=== PATIENT | male | born 1980 | race Caucasian/White ===

== ENCOUNTER 2018-01-27 19:47 | Emergency (ER) | payer OTHER ==
[~2018-01-27] VITALS: Ht 182.8 cm; Wt 129.3 kg
[~2018-01-27 19:47] MED LIST: ATIVAN1 MG PO; CIPROFLOXACIN500 MG PO; CLONAZEPAM2 M1 PO; KEFLEX500 MG PO; MOTRIN800 MG PO; PHENERGAN25 M1 PO; PREDNICOT20 MG PO; PREDNISONE50 MG PO; SERTRALINE PO; VICODIN ES 7501 TAB PO; ZITHROMAX Z PA250 MG PO; ZOLOFT100 MG PO
[2018-01-27 21:34] LABS: BASO % 0.6 % (0.0-1.0); EOS # 0.3 10*3/uL (0.0-0.4); EOS % 3.5 % (1.0-4.0); HEMOGLOBIN 14.6 g/dl (14.0-18.0); LYMPH # 2.4 10*3/uL (1.3-4.4); LYMPH % 33.9 % (27.0-41.0); MEAN CELL VOLUME 86.3 fl (80.0-94.0); MEAN CORPUSCULAR HGB 28.6 pg (27.0-31.0); MEAN CORPUSCULAR HGB CONC 33.2 g/dl (33.0-37.0); MEAN PLATELET VOLUME 10.4 fl (9.6-12.3); MONO # 0.5 10*3/uL (0.1-1.0); MONO % 7.2 % (3.0-9.0); NEUT # 3.9 10*3/uL (2.3-7.9); NEUT % 54.8 % (47.0-73.0); PLATELET COUNT AUTOMATED 280 10*3/uL (130-400); RED CELL DISTRI WIDTH 12.8 % (0-14.5); WHITE BLOOD COUNT 7.1 10*3/uL (4.8-10.8)
[2018-01-27 21:49] LABS: ALBUMIN 3.5 gm/dl (3.1-4.5); ALKALINE PHOSPHATASE 42 U/L (45-117); BUN 11 mg/dl (7-24); CHLORIDE 105 mmol/L (98-107); CREATININE 0.88 mg/dL (0.70-1.30); POTASSIUM 3.8 mmol/L (3.5-5.1); SGOT/AST 15 IU/L (3-35); SGPT/ALT 19 U/L (12-78); SODIUM 142 mmol/L (136-145); TOTAL PROTEIN 7.2 gm/dL (6.4-8.2)
[2018-01-27] MEDS ORDERED: MOTION SICKNESS25 M2 PO (23:36)
== END 2018-01-27 23:42 | disposition home or self-care (01) ==
LOC: ED 19:47
PROVIDERS: Nurse Practitioner
DX: G43.909 Migraine, unspecified, not intractable, without status migrainosus (principal); R42 Dizziness and giddiness; H65.92 Unspecified nonsuppurative otitis media, left ear; Z98.890 Other specified postprocedural states; Z91.040 Latex allergy status; Z79.899 Other long term (current) drug therapy

== ENCOUNTER 2018-06-17 01:06 | Emergency (ER) | payer OTHER ==
[~2018-06-17] VITALS: Ht 187.9 cm; Wt 136.1 kg
[~2018-06-17 01:06] MED LIST changes: +MOTION SICKNESS25 M2 PO
[2018-06-17 01:32] LABS: BASO # 0.1 10*3/uL (0.0-0.1); BASO % 0.4 % (0.0-1.0); EOS # 0.1 10*3/uL (0.0-0.4); EOS % 0.9 % (1.0-4.0); HEMATOCRIT 49.6 % (42.0-52.0); HEMOGLOBIN 16.4 g/dl (14.0-18.0); LYMPH # 1.4 10*3/uL (1.3-4.4); LYMPH % 10.4 % (27.0-41.0); MEAN CELL VOLUME 86.6 fl (80.0-94.0); MEAN CORPUSCULAR HGB 28.6 pg (27.0-31.0); MEAN CORPUSCULAR HGB CONC 33.1 g/dl (33.0-37.0); MEAN PLATELET VOLUME 10.3 fl (9.6-12.3); MONO # 0.9 10*3/uL (0.1-1.0); NEUT # 10.6 10*3/uL (2.3-7.9); NEUT % 81.1 % (47.0-73.0); PLATELET COUNT AUTOMATED 311 10*3/uL (130-400); RED BLOOD COUNT 5.73 10*6/uL (4.50-5.90); RED CELL DISTRI WIDTH 13.1 % (0-14.5); WHITE BLOOD COUNT 13.1 10*3/uL (4.8-10.8)
[2018-06-17 01:47] LABS: ALBUMIN 3.9 gm/dl (3.1-4.5); ALKALINE PHOSPHATASE 49 U/L (45-117); BUN 21 mg/dl (7-24); CHLORIDE 106 mmol/L (98-107); CREATININE 1.08 mg/dL (0.70-1.30); LIPASE 174 U/L (73-393); POTASSIUM 3.8 mmol/L (3.5-5.1); SGOT/AST 26 IU/L (3-35); SGPT/ALT 30 U/L (12-78); SODIUM 146 mmol/L (136-145); TOTAL PROTEIN 7.8 gm/dL (6.4-8.2)
== END 2018-06-17 03:09 | disposition home or self-care (01) ==
LOC: ED 01:06
PROVIDERS: Emergency Medicine
DX: K52.9 Noninfective gastroenteritis and colitis, unspecified (principal); G43.909 Migraine, unspecified, not intractable, without status migrainosus; Z91.040 Latex allergy status

== ENCOUNTER → 2018-12-06 | Outpatient (CLI) | payer OTHER ==
[~2018-12-06] MED LIST changes: +MEDROL DOSEPAK4 MG PO; +Motrin,Rufen800 MG PO; +NAPROSYN500 MG PO; +Orphenadrine C100 MG PO; +ROBAXIN500 M1 PO
[2018-12-06 14:17] LABS: BILIRUBIN NEGATIVE (NEGATIVE); BLOOD 1+ (NEGATIVE); CLARITY CLEAR (CLEAR); COLOR YELLOW (YELLOW); GLUCOSE NEGATIVE (NEGATIVE); KETONE NEGATIVE (NEGATIVE); LEUKO ESTERASE NEGATIVE (NEGATIVE); NITRITE NEGATIVE (NEGATIVE); UROBILINOGEN 0.2 E.U./dl (0.2-1.0)
[2018-12-06 14:27] LABS: BACTERIA 1+; FINE GRANULAR CAST 0-2; MUCOUS 3+
== END | disposition home or self-care (01) ==
LOC: LAB 13:43
PROVIDERS: Nurse Practitioner Family
DX: R82.90 Unspecified abnormal findings in urine (principal)

== ENCOUNTER 2019-02-19 13:47 | Emergency (ER) | payer OTHER ==
[~2019-02-19] VITALS: Ht 185.4 cm; Wt 131.5 kg
[~2019-02-19 13:47] MED LIST changes: -MEDROL DOSEPAK4 MG PO; -NAPROSYN500 MG PO; -ROBAXIN500 M1 PO
[2019-02-19] MEDS ORDERED: MEDROL DOSEPAK4 MG PO (14:21)
[2019-02-19] MEDS ORDERED: NAPROSYN500 MG PO (14:21)
[2019-02-19] MEDS ORDERED: ROBAXIN500 M1 PO (14:21)
== END 2019-02-19 14:51 | disposition home or self-care (01) ==
LOC: ED 13:47
DX: M54.42 Lumbago with sciatica, left side (principal); Z91.040 Latex allergy status; Z79.899 Other long term (current) drug therapy

== ENCOUNTER 2019-08-11 21:04 | Emergency (ER) | payer OTHER ==
[~2019-08-11] VITALS: Ht 187.9 cm; Wt 136.1 kg
[~2019-08-11 21:04] MED LIST changes: +MEDROL DOSEPAK4 MG PO; +NAPROSYN500 MG PO; +ROBAXIN500 M1 PO
[2019-08-11] MEDS ORDERED: DIFLUCAN150 MG PO (21:42)
[2019-08-11] MEDS ORDERED: IBUPROFEN600 MG PO (21:42)
== END 2019-08-11 22:20 | disposition home or self-care (01) ==
LOC: ED 21:04
DX: B37.0 Candidal stomatitis (principal); E66.9 Obesity, unspecified; Z91.040 Latex allergy status; Z79.899 Other long term (current) drug therapy

== ENCOUNTER → 2019-08-14 | Outpatient (CLI) | payer OTHER ==
[~2019-08-14] MED LIST changes: +DIFLUCAN150 MG PO; +IBUPROFEN600 MG PO
== END | disposition home or self-care (01) ==
LOC: CARD 13:35
DX: I10 Essential (primary) hypertension (principal)

== ENCOUNTER 2019-09-28 21:15 | Emergency (ER) | payer OTHER ==
[~2019-09-28] VITALS: Ht 185.4 cm; Wt 136.1 kg
[2019-09-28] MEDS ORDERED: CYCLOBENZAPRINE5 M3 PO (23:17)
== END 2019-09-28 23:57 | disposition home or self-care (01) ==
LOC: ED 21:15
DX: S16.1XXA Strain of muscle, fascia and tendon at neck level, initial encounter (principal); R42 Dizziness and giddiness; G43.909 Migraine, unspecified, not intractable, without status migrainosus; E66.9 Obesity, unspecified; Z79.899 Other long term (current) drug therapy; Z91.040 Latex allergy status; V89.2XXA Person injured in unspecified motor-vehicle accident, traffic, initial encounter; Y93.I9 Activity, other involving external motion; Y92.488 Other paved roadways as the place of occurrence of the external cause; Y99.8 Other external cause status

== ENCOUNTER 2019-10-22 19:39 | Emergency (ER) | payer OTHER ==
[~2019-10-22 19:39] MED LIST changes: +CYCLOBENZAPRINE5 M3 PO
== END 2019-10-22 21:20 | disposition home or self-care (01) ==
LOC: ED 19:39
DX: S40.252A Superficial foreign body of left shoulder, initial encounter (principal); S40.262A Insect bite (nonvenomous) of left shoulder, initial encounter; I10 Essential (primary) hypertension; F41.9 Anxiety disorder, unspecified; F32.9 Major depressive disorder, single episode, unspecified; Z91.040 Latex allergy status; Z79.899 Other long term (current) drug therapy; W57.XXXA Bitten or stung by nonvenomous insect and other nonvenomous arthropods, initial encounter; Y93.89 Activity, other specified; Y92.89 Other specified places as the place of occurrence of the external cause; Y99.8 Other external cause status

== ENCOUNTER 2019-12-13 11:21 | Emergency (ER) | payer OTHER ==
[2019-12-13 11:45] LABS: BASO % 0.8 % (0.0-1.0); EOS # 0.1 10*3/uL (0.0-0.4); EOS % 1.8 % (1.0-4.0); HEMATOCRIT 45.1 % (42.0-52.0); LYMPH # 1.2 10*3/uL (1.3-4.4); LYMPH % 22.7 % (27.0-41.0); MEAN CELL VOLUME 86.4 fl (80.0-94.0); MEAN CORPUSCULAR HGB 28.2 pg (27.0-31.0); MEAN CORPUSCULAR HGB CONC 32.6 g/dl (33.0-37.0); MEAN PLATELET VOLUME 10.2 fl (9.6-12.3); MONO # 0.4 10*3/uL (0.1-1.0); MONO % 7.9 % (3.0-9.0); NEUT # 3.4 10*3/uL (2.3-7.9); NEUT % 66.6 % (47.0-73.0); PLATELET COUNT AUTOMATED 285 10*3/uL (130-400); RED BLOOD COUNT 5.22 10*6/uL (4.50-5.90); RED CELL DISTRI WIDTH 12.8 % (0-14.5); WHITE BLOOD COUNT 5.1 10*3/uL (4.8-10.8)
[2019-12-13 11:56] LABS: ACT PARTIAL THROMBO TIME 30.1 SECONDS (20.0-32.1)
[2019-12-13 12:01] LABS: ALBUMIN 3.5 gm/dl (3.1-4.5); ALKALINE PHOSPHATASE 41 U/L (45-117); BUN 17 mg/dl (7-24); CHLORIDE 107 mmol/L (98-107); CREATININE 0.86 mg/dL (0.70-1.30); SGOT/AST 20 IU/L (3-35); SGPT/ALT 27 U/L (12-78); SODIUM 139 mmol/L (136-145); TOTAL PROTEIN 7.3 gm/dL (6.4-8.2)
[2019-12-13 12:05] LABS: TROPONIN I < 0.015 ng/ml (<0.045)
== END 2019-12-13 15:37 | disposition home or self-care (01) ==
LOC: ED 11:21
PROVIDERS: Emergency Medicine
DX: R07.89 Other chest pain (principal); E66.9 Obesity, unspecified; Z91.040 Latex allergy status

== ENCOUNTER 2019-12-14 14:31 | Emergency (ER) | payer OTHER ==
[~2019-12-14] VITALS: Ht 185.4 cm; Wt 145.6 kg
[2019-12-14 14:49] LABS: BASO % 0.6 % (0.0-1.0); EOS # 0.1 10*3/uL (0.0-0.4); EOS % 1.5 % (1.0-4.0); HEMATOCRIT 42.9 % (42.0-52.0); LYMPH % 19.5 % (27.0-41.0); MEAN CELL VOLUME 86.7 fl (80.0-94.0); MEAN CORPUSCULAR HGB 28.5 pg (27.0-31.0); MEAN CORPUSCULAR HGB CONC 32.9 g/dl (33.0-37.0); MONO # 0.3 10*3/uL (0.1-1.0); NEUT # 3.9 10*3/uL (2.3-7.9); PLATELET COUNT AUTOMATED 293 10*3/uL (130-400); RED BLOOD COUNT 4.95 10*6/uL (4.50-5.90); RED CELL DISTRI WIDTH 12.6 % (0-14.5); WHITE BLOOD COUNT 5.3 10*3/uL (4.8-10.8)
[2019-12-14 15:01] LABS: ACT PARTIAL THROMBO TIME 30.4 SECONDS (20.0-32.1)
[2019-12-14 15:05] LABS: ALBUMIN 3.3 gm/dl (3.1-4.5); ALKALINE PHOSPHATASE 35 U/L (45-117); BUN 14 mg/dl (7-24); CHLORIDE 108 mmol/L (98-107); CREATININE 0.82 mg/dL (0.70-1.30); POTASSIUM 4.1 mmol/L (3.5-5.1); SGOT/AST 18 IU/L (3-35); SGPT/ALT 26 U/L (12-78); SODIUM 141 mmol/L (136-145)
[2019-12-14 15:08] LABS: TROPONIN I < 0.015 ng/ml (<0.045)
== END 2019-12-14 17:28 | disposition home or self-care (01) ==
LOC: ED 14:31
PROVIDERS: Emergency Medicine
DX: R07.9 Chest pain, unspecified (principal); F41.9 Anxiety disorder, unspecified; F32.9 Major depressive disorder, single episode, unspecified; Z91.040 Latex allergy status

== ENCOUNTER 2020-04-13 19:46 | Emergency (ER) | payer OTHER ==
[2020-04-13] MEDS ORDERED: ATENOLOL50 M1 PO (20:40)
[2020-04-13] MEDS ORDERED: LISINOPRIL10 M1 PO (20:40)
[2020-04-13] MEDS ORDERED: DOXYCYCLINE MO100 M1 PO (20:40)
[2020-04-13] MEDS ORDERED: BUSPAR5 MG PO (20:40)
== END 2020-04-13 21:35 | disposition home or self-care (01) ==
LOC: ED 19:46
DX: S61.012A Laceration without foreign body of left thumb without damage to nail, initial encounter (principal); Z91.040 Latex allergy status; Z79.899 Other long term (current) drug therapy; W45.8XXA Other foreign body or object entering through skin, initial encounter; Y93.89 Activity, other specified; Y92.89 Other specified places as the place of occurrence of the external cause; Y99.8 Other external cause status

== ENCOUNTER 2020-04-21 00:29 | Emergency (ER) | payer OTHER ==
[~2020-04-21] VITALS: Ht 185.4 cm; Wt 145.1 kg
[~2020-04-21 00:29] MED LIST changes: +ATENOLOL50 M1 PO; +BUSPAR5 MG PO; +DOXYCYCLINE MO100 M1 PO; +LISINOPRIL10 M1 PO
[2020-04-21] MEDS ORDERED: CEPHALEXIN500 M1 PO ×2 (01:07)
== END 2020-04-21 01:46 | disposition home or self-care (01) ==
LOC: ED 00:29
DX: L08.9 Local infection of the skin and subcutaneous tissue, unspecified (principal); M79.622 Pain in left upper arm; G43.909 Migraine, unspecified, not intractable, without status migrainosus; Z91.040 Latex allergy status; Z79.899 Other long term (current) drug therapy

== ENCOUNTER 2020-05-08 05:51 | Emergency (ER) | payer OTHER ==
[~2020-05-08] VITALS: Ht 185.4 cm; Wt 136.1 kg
[~2020-05-08 05:51] MED LIST changes: +CEPHALEXIN500 M1 PO
== END 2020-05-08 07:12 | disposition home or self-care (01) ==
LOC: ED 05:51
DX: R21 Rash and other nonspecific skin eruption (principal); Z91.040 Latex allergy status; Z79.899 Other long term (current) drug therapy

== ENCOUNTER 2020-08-28 13:22 | Emergency (ER) | payer OTHER ==
[2020-08-28 13:53] LABS: BASO % 0.4 % (0.0-1.0); EOS # 0.1 10*3/uL (0.0-0.4); EOS % 2.4 % (1.0-4.0); LYMPH # 1.3 10*3/uL (1.3-4.4); MEAN CORPUSCULAR HGB 27.7 pg (27.0-31.0); MEAN CORPUSCULAR HGB CONC 32.9 g/dl (33.0-37.0); MEAN PLATELET VOLUME 10.3 fl (9.6-12.3); MONO # 0.4 10*3/uL (0.1-1.0); MONO % 7.4 % (3.0-9.0); NEUT # 3.7 10*3/uL (2.3-7.9); NEUT % 66.6 % (47.0-73.0); PLATELET COUNT AUTOMATED 312 10*3/uL (130-400); RED BLOOD COUNT 4.88 10*6/uL (4.50-5.90); RED CELL DISTRI WIDTH 13.3 % (0-14.5); WHITE BLOOD COUNT 5.5 10*3/uL (4.8-10.8)
[2020-08-28 14:09] LABS: ALBUMIN 3.4 gm/dl (3.1-4.5); ALKALINE PHOSPHATASE 41 U/L (45-117); BUN 19 mg/dl (7-24); CHLORIDE 108 mmol/L (98-107); CREATININE 0.79 mg/dL (0.70-1.30); POTASSIUM 3.8 mmol/L (3.5-5.1); SGOT/AST 22 IU/L (3-35); SGPT/ALT 28 U/L (12-78); SODIUM 141 mmol/L (136-145); TOTAL PROTEIN 7.4 gm/dL (6.4-8.2)
[2020-08-28 14:19] LABS: ETHYL ALCOHOL < 3.0 mg/dl (<3)
[2020-08-28 14:29] LABS: BILIRUBIN Negative (Negative); BLOOD Negative (Negative); CLARITY Clear (Clear); COLOR Yellow (Yellow); GLUCOSE Negative (Negative); KETONE Negative (Negative); LEUKO ESTERASE Negative (Negative); NITRITE Negative (Negative); UROBILINOGEN 0.2 E.U./dl (0.0-1.0)
[2020-08-28 14:35] LABS: BACTERIA TRACE; MUCOUS TRACE; RBC 0-2 rbc/hpf (0-2)
[2020-08-28 14:38] LABS: URINE AMPHETAMINES < 1000 (1000ng/ml); URINE BARBITURATES < 200 (200ng/ml); URINE BENZODIAZEPINES < 200 (200ng/ml); URINE CANNABINOIDS (THC) < 50 (50ng/ml); URINE COCAINE < 300 (300ng/ml); URINE METHADONE < 300 (300ng/ml); URINE OPIATES < 300 (300ng/ml)
[2020-08-28 14:40] LABS: URINE PHENCYCLIDINE < 25 (25ng/ml)
[2020-08-28] MEDS ORDERED: VISTARIL50 MG PO (15:52)
== END 2020-08-28 15:59 | disposition home or self-care (01) ==
LOC: ED 13:22
PROVIDERS: Emergency Medicine
DX: F41.9 Anxiety disorder, unspecified (principal); Z56.3 Stressful work schedule; I10 Essential (primary) hypertension; F32.9 Major depressive disorder, single episode, unspecified; G43.909 Migraine, unspecified, not intractable, without status migrainosus; Z91.040 Latex allergy status; Z79.899 Other long term (current) drug therapy

== ENCOUNTER 2020-12-13 22:45 | Emergency (ER) | payer OTHER ==
[~2020-12-13] VITALS: Ht 187.9 cm
[~2020-12-13 22:45] MED LIST changes: +VISTARIL50 MG PO
[2020-12-14] MEDS ORDERED: AUGMENTIN 875875 MG PO (01:50)
[2020-12-14] MEDS ORDERED: CLARITIN10 MG PO (01:50)
== END 2020-12-14 02:01 | disposition home or self-care (01) ==
LOC: ED 22:45
DX: J32.9 Chronic sinusitis, unspecified (principal); J40 Bronchitis, not specified as acute or chronic; F41.9 Anxiety disorder, unspecified; Z98.890 Other specified postprocedural states; Z91.040 Latex allergy status; Z79.899 Other long term (current) drug therapy

== ENCOUNTER 2021-09-19 15:28 | Emergency (ER) | payer OTHER ==
[~2021-09-19 15:28] MED LIST changes: +AUGMENTIN 875875 MG PO; +CLARITIN10 MG PO
== END 2021-09-19 16:00 | disposition home or self-care (01) ==
LOC: ED 15:28
DX: S61.211A Laceration without foreign body of left index finger without damage to nail, initial encounter (principal); Z90.89 Acquired absence of other organs; G43.909 Migraine, unspecified, not intractable, without status migrainosus; Z79.899 Other long term (current) drug therapy; Z91.040 Latex allergy status; W26.0XXA Contact with knife, initial encounter; Y93.89 Activity, other specified; Y92.89 Other specified places as the place of occurrence of the external cause; Y99.8 Other external cause status

== ENCOUNTER 2021-11-09 00:25 | Emergency (ER) | payer OTHER ==
[2021-11-09] MEDS ORDERED: NAPROSYN500 MG PO (01:11)
== END 2021-11-09 01:34 | disposition home or self-care (01) ==
LOC: ED 00:25
DX: M25.552 Pain in left hip (principal); Z79.899 Other long term (current) drug therapy; Z91.040 Latex allergy status; Z90.89 Acquired absence of other organs

== ENCOUNTER 2021-11-17 13:43 | Emergency (ER) | payer OTHER ==
[2021-11-17 20:47] LABS: BASO % 0.4 % (0.0-1.0); EOS # 0.1 10*3/uL (0.0-0.4); EOS % 0.7 % (1.0-4.0); HEMATOCRIT 46.4 % (42.0-52.0); LYMPH # 2.1 10*3/uL (1.3-4.4); LYMPH % 20.2 % (27.0-41.0); MEAN CELL VOLUME 86.2 fl (80.0-94.0); MEAN CORPUSCULAR HGB 28.4 pg (27.0-31.0); MEAN PLATELET VOLUME 10.3 fl (9.6-12.3); MONO # 0.8 10*3/uL (0.1-1.0); MONO % 7.8 % (3.0-9.0); NEUT # 7.5 10*3/uL (2.3-7.9); NEUT % 70.5 % (47.0-73.0); PLATELET COUNT AUTOMATED 325 10*3/uL (130-400); RED BLOOD COUNT 5.38 10*6/uL (4.50-5.90); RED CELL DISTRI WIDTH 13.8 % (0-14.5); WHITE BLOOD COUNT 10.6 10*3/uL (4.8-10.8)
[2021-11-17 21:04] LABS: ALKALINE PHOSPHATASE 52 U/L (45-117); BUN 17 mg/dl (7-24); CHLORIDE 106 mmol/L (98-107); POTASSIUM 3.8 mmol/L (3.5-5.1); SGOT/AST 11 IU/L (3-35); SGPT/ALT 26 U/L (12-78); SODIUM 138 mmol/L (136-145); TOTAL PROTEIN 7.6 gm/dL (6.4-8.2)
[2021-11-17] MEDS ORDERED: CYCLOBENZAPRINE5 M3 PO (22:27)
== END 2021-11-17 22:54 | disposition home or self-care (01) ==
LOC: ED 13:43
PROVIDERS: Nurse Practitioner
DX: E86.0 Dehydration (principal); E83.41 Hypermagnesemia; M62.838 Other muscle spasm; Z79.899 Other long term (current) drug therapy; Z91.040 Latex allergy status

== ENCOUNTER 2021-11-23 00:52 | Emergency (ER) | payer OTHER ==
[2021-11-23 01:42] LABS: BASO % 0.4 % (0.0-1.0); EOS # 0.1 10*3/uL (0.0-0.4); EOS % 1.3 % (1.0-4.0); HEMATOCRIT 45.5 % (42.0-52.0); LYMPH % 22.4 % (27.0-41.0); MEAN CELL VOLUME 85.7 fl (80.0-94.0); MEAN CORPUSCULAR HGB 27.5 pg (27.0-31.0); MEAN CORPUSCULAR HGB CONC 32.1 g/dl (33.0-37.0); MONO # 0.6 10*3/uL (0.1-1.0); NEUT # 6.3 10*3/uL (2.3-7.9); NEUT % 69.6 % (47.0-73.0); PLATELET COUNT AUTOMATED 332 10*3/uL (130-400); RED BLOOD COUNT 5.31 10*6/uL (4.50-5.90); RED CELL DISTRI WIDTH 13.6 % (0-14.5); WHITE BLOOD COUNT 9.1 10*3/uL (4.8-10.8)
[2021-11-23 01:59] LABS: ALKALINE PHOSPHATASE 48 U/L (45-117); BUN 20 mg/dl (7-24); CHLORIDE 103 mmol/L (98-107); CPK 285 U/L (39-308); POTASSIUM 3.8 mmol/L (3.5-5.1); SGOT/AST 21 IU/L (3-35); SGPT/ALT 24 U/L (12-78); SODIUM 139 mmol/L (136-145); TOTAL PROTEIN 7.2 gm/dL (6.4-8.2)
== END 2021-11-23 02:38 | disposition home or self-care (01) ==
LOC: ED 00:52
PROVIDERS: Internal Medicine
DX: R53.1 Weakness (principal)

== ENCOUNTER 2021-12-01 09:47 | Observation (INO) | payer OTHER ==
[~2021-12-01] VITALS: Ht 182.8 cm; Wt 156.3 kg
[2021-12-01 09:57] VITALS: BP 153/89
[2021-12-01 10:42] LABS: BASO % 0.3 % (0.0-1.0); EOS # 0.1 10*3/uL (0.0-0.4); EOS % 2.2 % (1.0-4.0); HEMATOCRIT 43.9 % (42.0-52.0); LYMPH # 1.3 10*3/uL (1.3-4.4); LYMPH % 22.7 % (27.0-41.0); MEAN CELL VOLUME 85.2 fl (80.0-94.0); MEAN CORPUSCULAR HGB 27.8 pg (27.0-31.0); MEAN CORPUSCULAR HGB CONC 32.6 g/dl (33.0-37.0); MEAN PLATELET VOLUME 9.9 fl (9.6-12.3); MONO # 0.5 10*3/uL (0.1-1.0); NEUT # 3.9 10*3/uL (2.3-7.9); NEUT % 66.6 % (47.0-73.0); PLATELET COUNT AUTOMATED 306 10*3/uL (130-400); RED BLOOD COUNT 5.15 10*6/uL (4.50-5.90); RED CELL DISTRI WIDTH 13.5 % (0-14.5); WHITE BLOOD COUNT 5.9 10*3/uL (4.8-10.8)
[2021-12-01 10:52] LABS: ACT PARTIAL THROMBO TIME 31.8 SECONDS (20.0-32.1)
[2021-12-01 11:06] LABS: ALKALINE PHOSPHATASE 46 U/L (45-117); BUN 20 mg/dl (7-24); CHLORIDE 108 mmol/L (98-107); CREATININE 0.73 mg/dL (0.70-1.30); LIPASE 170 U/L (73-393); POTASSIUM 3.8 mmol/L (3.5-5.1); SGOT/AST 11 IU/L (3-35); SGPT/ALT 21 U/L (12-78); SODIUM 139 mmol/L (136-145); TOTAL PROTEIN 7.1 gm/dL (6.4-8.2)
[2021-12-01 11:38] LABS: BILIRUBIN Negative (Negative); BLOOD Trace-Lysed (Negative); CLARITY Clear (Clear); COLOR Yellow (Yellow); GLUCOSE Negative (Negative); KETONE Negative (Negative); LEUKO ESTERASE Negative (Negative); NITRITE Negative (Negative); PH 7.5 (4.5-8.0); UROBILINOGEN 0.2 E.U./dl (0.0-1.0)
[2021-12-01 11:46] LABS: URINE AMPHETAMINES < 1000 (1000ng/ml); URINE BARBITURATES < 200 (200ng/ml); URINE BENZODIAZEPINES < 200 (200ng/ml); URINE CANNABINOIDS (THC) < 50 (50ng/ml); URINE COCAINE < 300 (300ng/ml); URINE METHADONE < 300 (300ng/ml); URINE OPIATES < 300 (300ng/ml)
[2021-12-01 11:48] LABS: URINE PHENCYCLIDINE < 25 (25ng/ml)
[2021-12-01 11:59] LABS: BACTERIA 1+
[2021-12-01 12:15] VITALS: BP 148/88
[2021-12-01 14:21] VITALS: BP 148/90
[2021-12-01 15:35] VITALS: BP 127/76
[2021-12-01 20:00] VITALS: BP 114/65
[2021-12-02] VITALS: BP 129/71
[2021-12-02 06:03] LABS: ALKALINE PHOSPHATASE 48 U/L (45-117); BUN 18 mg/dl (7-24); CHLORIDE 109 mmol/L (98-107); CHOLESTEROL 146 mg/dL (<200); CREATININE 0.89 mg/dL (0.70-1.30); LDL CHOLESTEROL 85 mg/dL (9-159); POTASSIUM 3.7 mmol/L (3.5-5.1); SGOT/AST 15 IU/L (3-35); SGPT/ALT 21 U/L (12-78); SODIUM 140 mmol/L (136-145); TOTAL PROTEIN 7.2 gm/dL (6.4-8.2); TRIGLYCERIDES 76 mg/dl (<150)
[2021-12-02 06:24] LABS: ACT PARTIAL THROMBO TIME 32.6 SECONDS (20.0-32.1)
[2021-12-02 06:29] LABS: BASO % 0.4 % (0.0-1.0); EOS # 0.2 10*3/uL (0.0-0.4); EOS % 2.5 % (1.0-4.0); HEMATOCRIT 46.1 % (42.0-52.0); LYMPH % 24.6 % (27.0-41.0); MEAN CELL VOLUME 87.5 fl (80.0-94.0); MEAN CORPUSCULAR HGB 28.1 pg (27.0-31.0); MEAN CORPUSCULAR HGB CONC 32.1 g/dl (33.0-37.0); MEAN PLATELET VOLUME 10.7 fl (9.6-12.3); MONO # 0.6 10*3/uL (0.1-1.0); MONO % 7.4 % (3.0-9.0); NEUT # 5.2 10*3/uL (2.3-7.9); NEUT % 64.7 % (47.0-73.0); PLATELET COUNT AUTOMATED 278 10*3/uL (130-400); RED BLOOD COUNT 5.27 10*6/uL (4.50-5.90); RED CELL DISTRI WIDTH 13.7 % (0-14.5)
[2021-12-02 08:00] VITALS: BP 133/70
[2021-12-02 08:12] LABS: VITAMIN D, 25-HYDROXY 28.2 ng/mL (30-100)
[2021-12-02] MEDS ORDERED: HYDR25T PO (10:41)
[2021-12-02] MEDS ORDERED: MECLIZINE HCL25 M2 PO (10:41)
== END 2021-12-02 11:15 | disposition home or self-care (01) ==
LOC: ED 09:47 → 4E 13:41 → EDHOLD 13:41 → 4E 14:35
PROVIDERS: Emergency Medicine; Family Medicine; ADMIT Internal Medicine; ATTEND Internal Medicine
DX: R42 Dizziness and giddiness (principal); G43.909 Migraine, unspecified, not intractable, without status migrainosus; R82.71 Bacteriuria; E87.8 Other disorders of electrolyte and fluid balance, not elsewhere classified; E83.41 Hypermagnesemia; R79.82 Elevated C-reactive protein (CRP); I10 Essential (primary) hypertension; E66.9 Obesity, unspecified; Z91.040 Latex allergy status; Z90.89 Acquired absence of other organs; Z79.899 Other long term (current) drug therapy

== ENCOUNTER → 2022-01-16 | Outpatient (CLI) | payer OTHER ==
[~2022-01-16] MED LIST changes: +HYDR25T PO; +MECLIZINE HCL25 M2 PO
[2022-01-16 10:01] LABS: BUN 23 mg/dl (7-24); CHLORIDE 109 mmol/L (98-107); POTASSIUM 3.9 mmol/L (3.5-5.1); SGOT/AST 19 IU/L (3-35); SODIUM 139 mmol/L (136-145)
[2022-01-16 10:05] LABS: ALKALINE PHOSPHATASE 51 U/L (45-117); CREATININE 0.74 mg/dL (0.70-1.30); SGPT/ALT 26 U/L (12-78); TOTAL PROTEIN 7.1 gm/dL (6.4-8.2)
== END | disposition home or self-care (01) ==
LOC: LAB 09:22
PROVIDERS: ATTEND Psychiatry & Neurology Neurology
DX: M62.838 Other muscle spasm (principal); R79.0 Abnormal level of blood mineral; R29.2 Abnormal reflex

== ENCOUNTER 2022-03-01 19:50 | Emergency (ER) | payer OTHER ==
[~2022-03-01] VITALS: Ht 177.8 cm; Wt 136.1 kg
[2022-03-01 22:17] LABS: BASO # 0.1 10*3/uL (0.0-0.1); BASO % 0.4 % (0.0-1.0); EOS # 0.1 10*3/uL (0.0-0.4); HEMATOCRIT 46.2 % (42.0-52.0); LYMPH # 2.1 10*3/uL (1.3-4.4); LYMPH % 19.1 % (27.0-41.0); MEAN CELL VOLUME 86.5 fl (80.0-94.0); MEAN CORPUSCULAR HGB 27.9 pg (27.0-31.0); MEAN CORPUSCULAR HGB CONC 32.3 g/dl (33.0-37.0); MEAN PLATELET VOLUME 9.9 fl (9.6-12.3); MONO # 0.9 10*3/uL (0.1-1.0); MONO % 8.2 % (3.0-9.0); NEUT # 7.9 10*3/uL (2.3-7.9); NEUT % 71.1 % (47.0-73.0); PLATELET COUNT AUTOMATED 334 10*3/uL (130-400); RED BLOOD COUNT 5.34 10*6/uL (4.50-5.90); RED CELL DISTRI WIDTH 13.2 % (0-14.5); WHITE BLOOD COUNT 11.1 10*3/uL (4.8-10.8)
[2022-03-01 22:32] LABS: ALKALINE PHOSPHATASE 51 U/L (45-117); BUN 20 mg/dl (7-24); CHLORIDE 104 mmol/L (98-107); CREATININE 0.76 mg/dL (0.70-1.30); LIPASE 170 U/L (73-393); POTASSIUM 3.4 mmol/L (3.5-5.1); SGOT/AST 15 IU/L (3-35); SGPT/ALT 28 U/L (12-78); SODIUM 138 mmol/L (136-145); TOTAL PROTEIN 7.4 gm/dL (6.4-8.2)
== END 2022-03-02 02:40 | disposition home or self-care (01) ==
LOC: ED 19:50
PROVIDERS: Physician Assistant
DX: R11.2 Nausea with vomiting, unspecified (principal); Z20.822 Contact with and (suspected) exposure to COVID-19; R19.7 Diarrhea, unspecified; Z91.040 Latex allergy status; Z79.899 Other long term (current) drug therapy; Z90.89 Acquired absence of other organs

== ENCOUNTER 2022-03-03 01:07 | Emergency (ER) | payer OTHER ==
[~2022-03-03] VITALS: Ht 185.4 cm; Wt 145.1 kg
== END 2022-03-03 04:30 | disposition home or self-care (01) ==
LOC: ED 01:07
DX: S20.212A Contusion of left front wall of thorax, initial encounter (principal); E66.9 Obesity, unspecified; I10 Essential (primary) hypertension; Z91.040 Latex allergy status; Z79.899 Other long term (current) drug therapy; Z90.89 Acquired absence of other organs; W18.39XA Other fall on same level, initial encounter; Y93.89 Activity, other specified; Y92.89 Other specified places as the place of occurrence of the external cause; Y99.8 Other external cause status

== ENCOUNTER 2022-03-25 00:19 | Emergency (ER) | payer OTHER ==
[~2022-03-25] VITALS: Ht 185.4 cm; Wt 145.1 kg
[2022-03-25 00:47] LABS: BASO # 0.1 10*3/uL (0.0-0.1); BASO % 0.6 % (0.0-1.0); EOS # 0.1 10*3/uL (0.0-0.4); EOS % 1.3 % (1.0-4.0); HEMATOCRIT 42.4 % (42.0-52.0); LYMPH # 2.4 10*3/uL (1.3-4.4); LYMPH % 25.7 % (27.0-41.0); MEAN CORPUSCULAR HGB 28.2 pg (27.0-31.0); MEAN CORPUSCULAR HGB CONC 32.1 g/dl (33.0-37.0); MONO # 0.8 10*3/uL (0.1-1.0); MONO % 8.2 % (3.0-9.0); NEUT % 63.9 % (47.0-73.0); PLATELET COUNT AUTOMATED 366 10*3/uL (130-400); RED BLOOD COUNT 4.82 10*6/uL (4.50-5.90); RED CELL DISTRI WIDTH 13.4 % (0-14.5); WHITE BLOOD COUNT 9.4 10*3/uL (4.8-10.8)
[2022-03-25 01:01] LABS: ALKALINE PHOSPHATASE 49 U/L (45-117); BUN 20 mg/dl (7-24); CHLORIDE 110 mmol/L (98-107); CREATININE 0.87 mg/dL (0.70-1.30); POTASSIUM 3.9 mmol/L (3.5-5.1); SGOT/AST 21 IU/L (3-35); SGPT/ALT 33 U/L (12-78); SODIUM 142 mmol/L (136-145); TOTAL PROTEIN 6.7 gm/dL (6.4-8.2)
== END 2022-03-25 01:36 | disposition home or self-care (01) ==
LOC: ED 00:19
PROVIDERS: Internal Medicine
DX: M79.662 Pain in left lower leg (principal); M79.661 Pain in right lower leg; E44.0 Moderate protein-calorie malnutrition; Z91.040 Latex allergy status; Z90.89 Acquired absence of other organs

== ENCOUNTER 2022-10-04 17:56 | Emergency (ER) | payer OTHER ==
[~2022-10-04] VITALS: Ht 185.4 cm; Wt 163.3 kg
[2022-10-04 18:19] LABS: BASO # 0.1 10*3/uL (0.0-0.1); BASO % 0.7 % (0.0-1.0); EOS # 0.1 10*3/uL (0.0-0.4); EOS % 1.8 % (1.0-4.0); HEMATOCRIT 44.7 % (42.0-52.0); LYMPH # 1.8 10*3/uL (1.3-4.4); LYMPH % 25.4 % (27.0-41.0); MEAN CELL VOLUME 85.5 fl (80.0-94.0); MEAN CORPUSCULAR HGB 28.1 pg (27.0-31.0); MEAN CORPUSCULAR HGB CONC 32.9 g/dl (33.0-37.0); MEAN PLATELET VOLUME 10.2 fl (9.6-12.3); MONO # 0.5 10*3/uL (0.1-1.0); MONO % 6.6 % (3.0-9.0); NEUT # 4.7 10*3/uL (2.3-7.9); NEUT % 65.2 % (47.0-73.0); PLATELET COUNT AUTOMATED 348 10*3/uL (130-400); RED BLOOD COUNT 5.23 10*6/uL (4.50-5.90); RED CELL DISTRI WIDTH 13.5 % (0-14.5); WHITE BLOOD COUNT 7.2 10*3/uL (4.8-10.8)
[2022-10-04 18:30] LABS: ACT PARTIAL THROMBO TIME 32.3 SECONDS (20.0-32.1); INTERNATIONAL NORM RATIO 1.1 (2.0-3.5)
[2022-10-04 18:35] LABS: ALKALINE PHOSPHATASE 48 U/L (46-116); BUN 16 mg/dl (9-23); CHLORIDE 106 mmol/L (98-107); POTASSIUM 4.1 mmol/L (3.4-5.1); SGPT/ALT 25 U/L (10-49); TOTAL PROTEIN 7.3 gm/dL (6.0-8.0)
[2022-10-04] MEDS ORDERED: NAPROSYN500 MG PO (20:25)
== END 2022-10-04 20:31 | disposition home or self-care (01) ==
LOC: ED 17:56
PROVIDERS: Family Medicine
DX: S39.012A Strain of muscle, fascia and tendon of lower back, initial encounter (principal); R07.89 Other chest pain; F32.A Depression, unspecified; F41.9 Anxiety disorder, unspecified; Z91.040 Latex allergy status; Z90.89 Acquired absence of other organs; X50.1XXA Overexertion from prolonged static or awkward postures, initial encounter; Y93.89 Activity, other specified; Y92.89 Other specified places as the place of occurrence of the external cause; Y99.8 Other external cause status

== ENCOUNTER 2022-10-09 00:26 | Emergency (ER) | payer OTHER ==
[~2022-10-09] VITALS: Ht 185.4 cm; Wt 167.4 kg
[2022-10-09] MEDS ORDERED: LISINOPRIL10 M1 PO (00:39)
[2022-10-09] MEDS ORDERED: PENICILLIN VK500 MG PO (01:07)
== END 2022-10-09 01:16 | disposition home or self-care (01) ==
LOC: ED 00:26
DX: K02.9 Dental caries, unspecified (principal); K08.89 Other specified disorders of teeth and supporting structures; F32.A Depression, unspecified; F41.9 Anxiety disorder, unspecified; Z91.040 Latex allergy status; Z98.890 Other specified postprocedural states; Z90.89 Acquired absence of other organs

== ENCOUNTER 2022-11-09 22:22 | Emergency (ER) | payer OTHER ==
[~2022-11-09] VITALS: Ht 185.4 cm; Wt 163.3 kg
[~2022-11-09 22:22] MED LIST changes: +PENICILLIN VK500 MG PO
[2022-11-09] MEDS ORDERED: ZESTRIL10 MG PO (22:58)
[2022-11-09] MEDS ORDERED: VIBRA-TAB100 MG PO (23:27)
== END 2022-11-09 23:51 | disposition home or self-care (01) ==
LOC: ED 22:22
DX: J32.9 Chronic sinusitis, unspecified (principal); I10 Essential (primary) hypertension; E66.9 Obesity, unspecified; G43.909 Migraine, unspecified, not intractable, without status migrainosus; Z91.040 Latex allergy status; Z90.89 Acquired absence of other organs

== ENCOUNTER 2022-12-17 21:22 | Emergency (ER) | payer OTHER ==
[~2022-12-17] VITALS: Ht 185.4 cm; Wt 163.3 kg
[~2022-12-17 21:22] MED LIST changes: +VIBRA-TAB100 MG PO; +ZESTRIL10 MG PO
[2022-12-17] MEDS ORDERED: PROVENTIL HFA6.7 GM INH (22:32)
[2022-12-17] MEDS ORDERED: MEDROL DOSEPAK4 MG PO (22:32)
[2022-12-17] MEDS ORDERED: ZITHROMAX250 MG PO (22:32)
== END 2022-12-17 22:40 | disposition home or self-care (01) ==
LOC: ED 21:22
DX: J32.0 Chronic maxillary sinusitis (principal); I10 Essential (primary) hypertension; Z91.040 Latex allergy status; Z79.2 Long term (current) use of antibiotics; Z79.899 Other long term (current) drug therapy; Z90.89 Acquired absence of other organs

== ENCOUNTER 2022-12-31 09:13 | Emergency (ER) | payer OTHER ==
[~2022-12-31] VITALS: Ht 185.4 cm; Wt 163.3 kg
[~2022-12-31 09:13] MED LIST changes: +PROVENTIL HFA6.7 GM INH; +ZITHROMAX250 MG PO
[2022-12-31] MEDS ORDERED: Motrin,Rufen800 MG PO (09:46)
[2022-12-31] MEDS ORDERED: CYCLOBENZAPRINE10 MG PO (09:46)
== END 2022-12-31 09:55 | disposition home or self-care (01) ==
LOC: ED 09:13
DX: S39.012A Strain of muscle, fascia and tendon of lower back, initial encounter (principal); Z91.040 Latex allergy status; Z79.2 Long term (current) use of antibiotics; Z79.899 Other long term (current) drug therapy; Z98.890 Other specified postprocedural states; Z90.89 Acquired absence of other organs; X58.XXXA Exposure to other specified factors, initial encounter; Y93.89 Activity, other specified; Y92.89 Other specified places as the place of occurrence of the external cause; Y99.8 Other external cause status

== ENCOUNTER 2022-12-31 16:16 | Emergency (ER) | payer OTHER ==
[~2022-12-31] VITALS: Wt 163.3 kg
[~2022-12-31 16:16] MED LIST changes: +CYCLOBENZAPRINE10 MG PO
== END 2022-12-31 18:37 | disposition left against medical advice (07) ==
LOC: ED 16:16
DX: R52 Pain, unspecified (principal); Z53.21 Procedure and treatment not carried out due to patient leaving prior to being seen by health care provider

== ENCOUNTER 2022-12-31 19:58 | Emergency (ER) | payer OTHER | END 2022-12-31 20:36 | disposition home or self-care (01) | LOC: ED 19:58 | DX: M54.32 Sciatica, left side (principal); Z91.040 Latex allergy status; Z79.899 Other long term (current) drug therapy; Z79.2 Long term (current) use of antibiotics; Z98.890 Other specified postprocedural states; Z90.89 Acquired absence of other organs ==

== ENCOUNTER 2023-01-02 15:43 | Emergency (ER) | payer OTHER ==
[~2023-01-02] VITALS: Ht 185.4 cm; Wt 163.3 kg
[2023-01-02 17:22] LABS: BASO % 0.2 % (0.0-1.0); EOS % 0.3 % (1.0-4.0); HEMATOCRIT 46.3 % (42.0-52.0); LYMPH # 1.6 10*3/uL (1.3-4.4); LYMPH % 15.9 % (27.0-41.0); MEAN CORPUSCULAR HGB 28.2 pg (27.0-31.0); MEAN CORPUSCULAR HGB CONC 32.4 g/dl (33.0-37.0); MEAN PLATELET VOLUME 10.1 fl (9.6-12.3); MONO # 0.7 10*3/uL (0.1-1.0); MONO % 6.5 % (3.0-9.0); NEUT # 7.9 10*3/uL (2.3-7.9); NEUT % 76.8 % (47.0-73.0); PLATELET COUNT AUTOMATED 329 10*3/uL (130-400); RED BLOOD COUNT 5.32 10*6/uL (4.50-5.90); RED CELL DISTRI WIDTH 13.7 % (0-14.5); WHITE BLOOD COUNT 10.3 10*3/uL (4.8-10.8)
[2023-01-02 17:33] LABS: ACT PARTIAL THROMBO TIME 30.7 SECONDS (20.0-32.1); INTERNATIONAL NORM RATIO 1.1 (2.0-3.5)
[2023-01-02 17:44] LABS: ALKALINE PHOSPHATASE 44 U/L (46-116); BUN 20 mg/dl (9-23); CHLORIDE 105 mmol/L (98-107); LIPASE 36 U/L (12-53); POTASSIUM 3.9 mmol/L (3.4-5.1); SGPT/ALT 29 U/L (10-49); TOTAL PROTEIN 6.9 gm/dL (6.0-8.0)
== END 2023-01-02 22:26 | disposition home or self-care (01) ==
LOC: ED 15:43
PROVIDERS: Internal Medicine
DX: M54.32 Sciatica, left side (principal); F32.A Depression, unspecified; F41.9 Anxiety disorder, unspecified; Z91.040 Latex allergy status; Z90.89 Acquired absence of other organs

== ENCOUNTER → 2023-03-29 | Outpatient (CLI) | payer OTHER ==
[2023-03-29 09:07] LABS: BASO % 0.6 % (0.0-1.0); EOS # 0.2 10*3/uL (0.0-0.4); EOS % 2.1 % (1.0-4.0); HEMATOCRIT 45.3 % (42.0-52.0); LYMPH # 1.9 10*3/uL (1.3-4.4); LYMPH % 26.4 % (27.0-41.0); MEAN CELL VOLUME 87.6 fl (80.0-94.0); MEAN PLATELET VOLUME 10.5 fl (9.6-12.3); MONO # 0.5 10*3/uL (0.1-1.0); MONO % 7.2 % (3.0-9.0); NEUT # 4.6 10*3/uL (2.3-7.9); NEUT % 63.6 % (47.0-73.0); PLATELET COUNT AUTOMATED 362 10*3/uL (130-400); RED BLOOD COUNT 5.17 10*6/uL (4.50-5.90); RED CELL DISTRI WIDTH 13.7 % (0-14.5); WHITE BLOOD COUNT 7.2 10*3/uL (4.8-10.8)
[2023-03-29 09:38] LABS: ALKALINE PHOSPHATASE 49 U/L (46-116); BUN 13 mg/dl (9-23); CHLORIDE 106 mmol/L (98-107); CHOLESTEROL 152 mg/dL (<200); LDL CHOLESTEROL 93 mg/dL (9-159); POTASSIUM 4.1 mmol/L (3.4-5.1); SGPT/ALT 21 U/L (10-49); TOTAL PROTEIN 7.1 gm/dL (6.0-8.0); TRIGLYCERIDES 87 mg/dl (<150)
== END | disposition home or self-care (01) ==
LOC: LAB 08:07
PROVIDERS: ATTEND Nurse Practitioner Primary Care
DX: I10 Essential (primary) hypertension (principal); E55.9 Vitamin D deficiency, unspecified; R53.83 Other fatigue

== ENCOUNTER → 2023-07-25 | Outpatient (CLI) | payer OTHER ==
[2023-07-25 12:00] LABS: BASO # 0.1 10*3/uL (0.0-0.1); BASO % 0.8 % (0.0-1.0); EOS # 0.2 10*3/uL (0.0-0.4); EOS % 2.5 % (1.0-4.0); HEMATOCRIT 46.1 % (42.0-52.0); LYMPH % 30.8 % (27.0-41.0); MEAN CELL VOLUME 86.3 fl (80.0-94.0); MEAN CORPUSCULAR HGB CONC 31.2 g/dl (33.0-37.0); MEAN PLATELET VOLUME 10.1 fl (9.6-12.3); MONO # 0.5 10*3/uL (0.1-1.0); MONO % 7.2 % (3.0-9.0); NEUT # 3.7 10*3/uL (2.3-7.9); NEUT % 57.5 % (47.0-73.0); PLATELET COUNT AUTOMATED 348 10*3/uL (130-400); RED BLOOD COUNT 5.34 10*6/uL (4.50-5.90); RED CELL DISTRI WIDTH 13.4 % (0-14.5); WHITE BLOOD COUNT 6.4 10*3/uL (4.8-10.8)
[2023-07-25 12:37] LABS: ALKALINE PHOSPHATASE 49 U/L (46-116); BUN 14 mg/dl (9-23); CHLORIDE 105 mmol/L (98-107); CHOLESTEROL 149 mg/dL (<200); LDL CHOLESTEROL 93 mg/dL (9-159); POTASSIUM 4.3 mmol/L (3.4-5.1); SGPT/ALT 20 U/L (5-49); TOTAL PROTEIN 7.3 gm/dL (6.0-8.0); TRIGLYCERIDES 77 mg/dl (<150)
== END | disposition home or self-care (01) ==
LOC: LAB 11:36
PROVIDERS: ATTEND Nurse Practitioner Primary Care
DX: I10 Essential (primary) hypertension (principal); R73.9 Hyperglycemia, unspecified

== ENCOUNTER 2023-07-30 14:41 | Emergency (ER) | payer OTHER ==
[~2023-07-30] VITALS: Ht 185.4 cm; Wt 154.2 kg
[2023-07-30] MEDS ORDERED: Ketorolac Tromethamine 30 MG/ML VIAL IM ONE (15:05)
[2023-07-30] MEDS ORDERED: methylPREDNISolone sod succ 125 MG VIAL IM ONE (15:05)
== END 2023-07-30 16:37 | disposition home or self-care (01) ==
LOC: ED 14:41
DX: M70.71 Other bursitis of hip, right hip (principal); Z91.040 Latex allergy status; Z79.899 Other long term (current) drug therapy; Z79.2 Long term (current) use of antibiotics; Z98.890 Other specified postprocedural states; Z90.89 Acquired absence of other organs; Y93.89 Activity, other specified

== ENCOUNTER 2024-01-11 09:27 | Emergency (ER) | payer OTHER ==
[~2024-01-11] VITALS: Ht 185.4 cm; Wt 156.5 kg
[2024-01-11] MEDS ORDERED: AMOX-CLAV 875-1 EACH PO (10:55)
== END 2024-01-11 10:53 | disposition home or self-care (01) ==
LOC: ED 09:27
DX: H66.91 Otitis media, unspecified, right ear (principal); Z91.040 Latex allergy status; Z79.899 Other long term (current) drug therapy; Z90.89 Acquired absence of other organs; Z98.890 Other specified postprocedural states

== ENCOUNTER 2024-06-14 19:41 | Emergency (ER) | payer OTHER ==
[~2024-06-14] VITALS: Ht 185.4 cm; Wt 163.3 kg
[~2024-06-14 19:41] MED LIST changes: +AMOX-CLAV 875-1 EACH PO
[2024-06-14] MEDS ORDERED: cloNIDine Hydrochloride 0.1 MG TAB PO ONE (20:15)
== END 2024-06-14 20:36 | disposition home or self-care (01) ==
LOC: ED 19:41
DX: I10 Essential (primary) hypertension (principal); R51.9 Headache, unspecified; F32.A Depression, unspecified; F41.9 Anxiety disorder, unspecified; Z91.040 Latex allergy status; Z90.89 Acquired absence of other organs

== ENCOUNTER 2024-06-22 18:06 | Emergency (ER) | payer OTHER ==
[~2024-06-22] VITALS: Ht 185.4 cm; Wt 163.3 kg
[2024-06-22] MEDS ORDERED: ACETAMINOPHEN500 M4 PO (18:24)
[2024-06-22] MEDS ORDERED: PENICILLIN VK500 MG PO (18:24)
[2024-06-22] MEDS ORDERED: Acetaminophen/Oxycodone 5 MG/325 MG TABLET PO ONE (18:25)
[2024-06-22] MEDS ORDERED: MELOXICAM15 MG PO (18:43)
== END 2024-06-22 19:02 | disposition home or self-care (01) ==
LOC: ED 18:06
DX: S63.501A Unspecified sprain of right wrist, initial encounter (principal); F32.A Depression, unspecified; F41.9 Anxiety disorder, unspecified; Z91.040 Latex allergy status; Z90.89 Acquired absence of other organs; W00.0XXA Fall on same level due to ice and snow, initial encounter; Y93.89 Activity, other specified; Y92.89 Other specified places as the place of occurrence of the external cause; Y99.8 Other external cause status

== ENCOUNTER 2024-07-01 16:25 | Emergency (ER) | payer OTHER ==
[~2024-07-01] VITALS: Ht 185.4 cm; Wt 163.3 kg
[~2024-07-01 16:25] MED LIST changes: +ACETAMINOPHEN500 M4 PO; +MELOXICAM15 MG PO
[2024-07-01] MEDS ORDERED: Amoxicillin/Clavulanate Pota 875 MG TAB PO ONE (16:50)
[2024-07-01] MEDS ORDERED: AMOX-CLAV 875-1 EACH PO (16:51)
== END 2024-07-01 16:53 | disposition home or self-care (01) ==
LOC: ED 16:25
DX: H66.93 Otitis media, unspecified, bilateral (principal); J02.9 Acute pharyngitis, unspecified; F32.A Depression, unspecified; F41.9 Anxiety disorder, unspecified; Z91.040 Latex allergy status; Z90.89 Acquired absence of other organs

== ENCOUNTER 2024-08-12 18:37 | Emergency (ER) | payer OTHER ==
[~2024-08-12] VITALS: Ht 185.4 cm; Wt 163.3 kg
[2024-08-12] MEDS ORDERED: Ketorolac Tromethamine 60 MG/2 ML VIAL IM ONE (19:40)
[2024-08-12] MEDS ORDERED: methylPREDNISolone sod succ 125 MG VIAL IM ONE (19:40)
[2024-08-12] MEDS ORDERED: BUPivacaine 0.25% 10 ML VIAL SC ONE (19:45)
[2024-08-12] MEDS ORDERED: Cyclobenzaprine Hydrochlorid 10 MG TAB PO ONE (19:45)
[2024-08-12] MEDS ORDERED: Motrin,Rufen800 MG PO (21:01)
[2024-08-12] MEDS ORDERED: MEDROL DOSEPAK4 MG PO (21:01)
[2024-08-12] MEDS ORDERED: CYCLOBENZAPRINE10 MG PO (21:01)
== END 2024-08-12 22:33 | disposition home or self-care (01) ==
LOC: ED 18:37
DX: M54.42 Lumbago with sciatica, left side (principal); I10 Essential (primary) hypertension; F41.9 Anxiety disorder, unspecified; F32.A Depression, unspecified; Z91.040 Latex allergy status; Z90.89 Acquired absence of other organs